=== PATIENT | male | born 1995 | race Caucasian/White ===

== ENCOUNTER 2021-10-11 19:23 | Emergency (ER) | payer OTHER ==
[~2021-10-11] VITALS: Ht 182.9 cm; Wt 72.6 kg
[2021-10-11 20:14] VITALS: BP 150/90
[2021-10-11] MEDS ORDERED: STRATTERA60 MG PO (20:16)
== END 2021-10-11 23:12 | disposition home or self-care (01) ==
LOC: ER 19:23
DX: T18.0XXA Foreign body in mouth, initial encounter (principal); Z79.899 Other long term (current) drug therapy; X58.XXXA Exposure to other specified factors, initial encounter; Y93.89 Activity, other specified; Y92.89 Other specified places as the place of occurrence of the external cause; Y99.8 Other external cause status

== ENCOUNTER 2021-10-15 08:19 | Emergency (ER) | payer OTHER ==
[~2021-10-15] VITALS: Ht 190.5 cm; Wt 93.0 kg
[~2021-10-15 08:19] MED LIST: STRATTERA60 MG PO
[2021-10-15 15:27] VITALS: BP 131/74
== END 2021-10-15 15:30 | disposition still patient (30) ==
LOC: ER 08:19
DX: T18.0XXA Foreign body in mouth, initial encounter (principal); Z20.822 Contact with and (suspected) exposure to COVID-19; Z79.899 Other long term (current) drug therapy; X58.XXXA Exposure to other specified factors, initial encounter; Y93.89 Activity, other specified; Y92.89 Other specified places as the place of occurrence of the external cause; Y99.8 Other external cause status
CPT/HCPCS: 62110; 62900